=== PATIENT | female | born 1985 | race Caucasian/White ===

== ENCOUNTER 2017-04-14 12:02 | Emergency (ER) | payer OTHER, SELFPAY | END 2017-04-14 12:59 | disposition home or self-care (01) | PROVIDERS: Emergency Provider Emergency Medicine; Visit Provider Emergency Medicine | DX: J10.1 Influenza due to other identified influenza virus with other respiratory manifestations (principal); J06.9 Acute upper respiratory infection, unspecified; Z88.2 Allergy status to sulfonamides | CPT/HCPCS: 87070; 87275; 87276; 87430; 99282 ==

== ENCOUNTER → 2017-09-02 14:21 | Outpatient (CLI) | payer OTHER, SELFPAY ==
--- NOTE | 2017-09-02 16:16 | CT_ITS ---
CT abdomen pelvis wo con CLINICAL INDICATION: Left lower back and flank pain ITS.REASON: CT W/O Contrast- Stone Protocol ORDERING PHYSICIAN: Robert Cohn MD PATIENT AGE: 31 years COMPARISON: None TECHNIQUE: Axial images obtained with sagittal and coronal reformats. All CT scans at the facility use one or more dose reduction, viz: automated exposure control; ma/kV adjustment per patient size (including targeted exams where dose is matched to indication; i.e. head); or iterative reconstruction technique. PROCEDURE: Oral Contrast: None IV Contrast: None . FINDINGS: Lung bases are clear. There is an ill-defined 16 mm isodensity in the right hepatic lobe posteriorly and superiorly. A 9 mm isodense involves the tip of the right hepatic lobe inferiorly and there is an additional isodensity in the right hepatic lobe inferiorly and posteriorly at 11 mm. The spleen, adrenal glands, pancreas, and kidneys have an unremarkable unenhanced CT appearance. No obstructing renal or ureteral calculi. No evidence of appendicitis. No intestinal obstruction or free air. No focal inflammatory change apparent. No acute bony anomalies. IMPRESSION: 1. No obstructing renal or ureteral calculi. 2. At least 3 isodensity's of the liver the largest in the hepatic dome and 16 mm. These cannot be further characterized by CT. Initially ultrasound may be of further value to determine the cystic or solid nature.
== END ==
PROVIDERS: Family Provider Family Medicine; PCP Pediatrics; Visit Provider Nurse Practitioner Obstetrics & Gynecology
DX: N20.0 Calculus of kidney (principal)
CPT/HCPCS: 74176

== ENCOUNTER → 2019-12-09 14:39 | Outpatient (CLI) | payer OTHER, SELFPAY ==
[2019-12-09 15:10] LABS: Basophils % 0.2 % (0.1-2.0); Eosinophils # 0.1 K/mm3 (0.0-0.4); Hemoglobin 12.7 g/dL (12.2-16.2); Lymphocytes # 2.5 K/mm3 (0.7-4.5); Lymphocytes % 19.1 % (10-50); Mean Corpuscular HGB Conc 36.4 g/dL (31.8-35.4); Mean Corpuscular Hemoglobin 33.6 pg (27.0-31.2); Mean Corpuscular Volume 92.3 fl (81-99); Mean Platelet Volume 8.5 fl (7.4-10.4); Monocytes # 0.4 K/mm3 (0.1-1.0); Monocytes % 3.3 % (1.7-9.3); Neutrophils # 9.9 K/mm3 (1.8-7.8); Neutrophils % 76.4 % (37.0-80.0); Platelet Count 232 K/mm3 (142-424); Red Blood Count 3.79 M/mm3 (4.20-5.40)
[2019-12-11 08:14] LABS: HIV Screen 4th Generation wRfx Non Reactive (Non Reactive)
[2019-12-11 10:16] LABS: Hepatitis B Surface Antigen Negative (Negative); Hepatitis C Antibody <0.1 s/co ratio (0.0-0.9); Rubella Antibodies, IgG 1.46 index (Immune >0.99)
[2019-12-12 15:09] LABS: Rapid Plasma Reagin Ab Titer Non Reactive (NonRea<1:1)
== END ==
PROVIDERS: Visit Provider Nurse Practitioner Obstetrics & Gynecology
DX: Z34.90 Encounter for supervision of normal pregnancy, unspecified, unspecified trimester (principal)
CPT/HCPCS: 36415; 85025; 86592; 86703; 86762; 86850; 87340; 87380; G0432

== ENCOUNTER → 2019-12-16 10:30 | Outpatient (CLI) | payer OTHER, SELFPAY ==
--- NOTE | 2019-12-16 10:30 | US_ITS ---
PROCEDURE: US OB TRANSVAGINAL CLINICAL INDICATION: for dates Early Ob ultrasound for dates COMPARISON: No exams were available for comparison FINDINGS: An intrauterine gestational sac is present with a pole with a crown-rump length of 1.13cm correlating to gestational age of 7weeks 2days. heart tones are present with an FHR of 146bpm. Yolk sac is noted. 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 There is minimal amount of cul-de-sac fluid noted. IMPRESSION: There is a live intrauterine gestation at 7 weeks 2 days. The intrauterine gestation is within the right side of a bicornuate uterus. Estimated due date by Ultrasound is 08/01/2020 Dictated by: Shailesh Weems MD 12/16/2019 14:05 Shailesh Weems MD in [place] 12/16/2019 14:05
== END ==
PROVIDERS: PCP Pediatrics; Visit Provider Nurse Practitioner Obstetrics & Gynecology
DX: Z34.90 Encounter for supervision of normal pregnancy, unspecified, unspecified trimester (principal)
CPT/HCPCS: 76817

== ENCOUNTER 2020-03-06 13:35 | Emergency (ER) | payer OTHER, SELFPAY ==
[2020-03-06 14:20] VITALS: BP 135/93; PULSE 95; RESP 20; TEMP 37; O2SAT 99; BMI 27.4
[2020-03-06 14:43] LABS: UTC Strep Screen (Rapid) Negative (Negative)
--- NOTE | 2020-03-06 14:53 | HMH.EDUTC ---
[facility] [place] Disposition Clinical Impression: Viral syndrome Disposition: Home, Self-Care Condition on Discharge: Good Instructions: DI for Viral Syndrome, Preventing the Spread of Coronavirus Discharge Instructions Additional Instructions: Drink plenty of fluids. Take tylenol for pain or fever. Follow up with your regular doctor. GO TO THE ER FOR ANY WORSENING SYMPTOMS Referrals: Elan Haley [Primary Care Provider] - Forms: Work/School Release Time of Disposition: 14:54 Medical Decision Making - Medical Records Medical records reviewed: No: I reviewed the patient's medical records. - Joseph Inquiry Pt receiving controlled substance: No Vital Signs: 03/06/20 14:20 03/06/20 14:58 Temperature 98.6 F 98.6 F Temperature Source Oral Pulse Rate 95 H Pulse Rate [Left Brachial] 95 H Respiratory Rate 20 20 Blood Pressure 135/93 H Blood Pressure [Left Arm] 135/93 H Blood Pressure Mean [Left Arm] 107 Blood Pressure Source [Left Arm] Automatic Cuff Blood Pressure Position [Left Arm] Sitting 02 Sat by Pulse Oximetry 99 Oxygen Delivery Method Room Air - Lab Data Lab results reviewed: Yes: I reviewed the patient's lab results. Lab Results 03/06/20 14:37: Strep Scn Rapid Clinic Negative Orders (Tests/Meds): ORDERS Category Date Time Status Strep Screen Confirmation Stat Micro 03/06/20 14:37 Received [facility] [place] HPI - General Stated complaint: headache,sore throat,cough, wants covid test Time Seen by Provider: 03/06/20 14:53 Mode of Arrival: Ambulatory Source of Information: Patient Limitations: No Limitations Description of Symptoms (Recalled from Triage Doc. by RN): PATIENT C/O COUGH, SORE THROAT, AND HEADACHE. REQUESTING A COVID TEST D/T HER CHILD BEING EXPOSED TO IT THROUGH DAYCARE ON 02/29/20 HEENT Symptoms (Recalled from RN notes): Yes Resp Symptoms (Recalled from RN notes): Yes Skin Symptoms (Recalled from RN notes): No MS Symptoms (Recalled from RN notes): No Functional Status (Recalled from RN notes): WNL - History of Present Illness Provider Complaint: She body aches, feeling bad, chilling (no documented fever) and sore throat for the past 1 day. - Related Data Allergies Allergy/AdvReac Type Severity Reaction Status Date / Time Sulfa (Sulfonamide Allergy Intermediate Verified 12/31/19 10:24 Antibiotics) [SULFA (SULFONAMIDE ANTIBIOTICS)] Latex, Natural Rubber AdvReac Mild Verified 12/31/19 10:24 - Worker's Comp Is this a Worker's Comp case?: No [facility] History - Hepatitis A Screen Drug use history?: No High risk sexual behaviors?: No History of sexually transmitted infection?: No Currently employed?: No Childcare worker?: No Do you have indoor plumbing?: Yes Do you have electricity?: Yes Attestation statement:: This patient has been screened for Hepatitis A risk factors. I have reviewed the patient's past medical history: Yes Medical History: Reports:: Anxiety Other Medical History: Reports: Anemia Other Surgeries: Yes: No Previous Surgery Amputation: No Fractures: No - Social History Smoking Status: Current every day smoker Tobacco Type: cigarettes (4-6 cigarettes per day) Alcohol Intake: never Alcohol Intake Frequency:: holidays/special occasions only Substance Use Type: denies use Occupational Status: other Housing: house Household Members: family Comment: -wine. -more nights than not. -a glass of wine. 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
[2020-03-06 14:58] VITALS: BP 135/93; PULSE 95; RESP 20; TEMP 37; O2SAT 99
== END 2020-03-06 15:00 | disposition home or self-care (01) ==
PROVIDERS: Emergency Provider Nurse Practitioner Family; PCP Pediatrics
DX: B34.9 Viral infection, unspecified (principal); F41.9 Anxiety disorder, unspecified; F17.210 Nicotine dependence, cigarettes, uncomplicated
CPT/HCPCS: 87880; 99202; U0003

== ENCOUNTER → 2020-06-16 09:57 | Outpatient (CLI) | payer OTHER, SELFPAY ==
--- NOTE | 2020-06-16 09:57 | US_ITS ---
PROCEDURE: US OB TRANSVAGINAL CLINICAL INDICATION: US OB TV for Confirmation of -DATES COMPARISON: CT ABDPELWO CT abdomen pelvis wo con from 09/02/2017 US US OB TRANSVAGINAL from 12/16/2019 FINDINGS: An intrauterine gestational sac is present with a pole with a crown-rump length of 1.99cm correlating to gestational age of 8weeks 4days. heart tones are present with an FHR of 160bpm. Yolk sac is noted. The uterus is retroverted and bicornuate with the gestational in the right-side of the uterus. IMPRESSION: Live IUP at 8 weeks 4 days Estimated due date by Ultrasound is 01/22/2021 Dictated by: Shailesh Weems MD 06/16/2020 17:51 Shailesh Weems MD in [place] 06/16/2020 17:51
== END ==
PROVIDERS: PCP Pediatrics; Visit Provider Nurse Practitioner Obstetrics & Gynecology
DX: O26.841 Uterine size-date discrepancy, first trimester (principal)
CPT/HCPCS: 76817

== ENCOUNTER → 2020-07-06 08:10 | Outpatient (CLI) | payer OTHER, SELFPAY ==
[2020-07-06 09:01] LABS: Basophils % 0.2 % (0.1-2.0); Eosinophils # 0.1 K/mm3 (0.0-0.4); Eosinophils % 1.7 % (0.1-12.0); Hematocrit 34.6 % (37.0-47.0); Hemoglobin 11.7 g/dL (12.2-16.2); Lymphocytes # 1.8 K/mm3 (0.7-4.5); Lymphocytes % 23.4 % (10-50); Mean Corpuscular HGB Conc 33.8 g/dL (31.8-35.4); Mean Corpuscular Hemoglobin 31.4 pg (27.0-31.2); Mean Corpuscular Volume 92.9 fl (81-99); Monocytes # 0.2 K/mm3 (0.1-1.0); Monocytes % 3.1 % (1.7-9.3); Neutrophils # 5.5 K/mm3 (1.8-7.8); Neutrophils % 71.7 % (37.0-80.0); Platelet Count 222 K/mm3 (142-424); Red Blood Count 3.73 M/mm3 (4.20-5.40); Red Cell Distribution Width 12.3 % (11.5-17.5); White Blood Count 7.6 K/mm3 (4.8-10.8)
[2020-07-07 11:57] LABS: HIV Screen 4th Generation wRfx Non Reactive (Non Reactive)
[2020-07-07 13:01] LABS: Hepatitis B Surface Antigen Negative (Negative); Hepatitis C Antibody <0.1 s/co ratio (0.0-0.9); Rapid Plasma Reagin Ab Titer Non Reactive (NonRea<1:1); Rubella Antibodies, IgG 1.29 index (Immune >0.99)
== END ==
PROVIDERS: Visit Provider Nurse Practitioner Obstetrics & Gynecology
DX: Z34.90 Encounter for supervision of normal pregnancy, unspecified, unspecified trimester (principal)
CPT/HCPCS: 36415; 85025; 86592; 86703; 86762; 86850; 87340; 87380; G0432

== ENCOUNTER → 2020-09-08 12:56 | Outpatient (CLI) | payer OTHER, SELFPAY ==
--- NOTE | 2020-09-08 12:56 | US_ITS ---
PROCEDURE: US OB /MATERNAL DETAIL CLINICAL INDICATION: 20 weeks gestation COMPARISON: US US OB TRANSVAGINAL from 06/16/2020 FINDINGS: Single viable intrauterine gestation. Breech position. Placenta: Posteriorplacenta grade 1. There is average amount fluid. The cervix appears satisfactory. Closed and measuring 4 cm in length. Complete survey performed and was unremarkable on the submitted images as in PACS. No discrete anomalies identified on survey imaging by technologist. Active fetus. Three-vessel cord with satisfactory umbilical cord insertion. 4- chamber heart noted. Survey of brain & ventricles Unremarkable. Face and neck survey unremarkable. Diaphragm and chest views unremarkable. Abdomen: Both kidneys noted and unremarkable. Stomach noted and satisfactory. Spine: Survey of the spine satisfactory with no anomalies identified nor imaged. Both arms and legs noted. Amniotic Fluid: Adequate. Maternal adnexa: No significant findings. Measurements: Average ultrasound age 20 weeks 4 days. Gestational Age 20 weeks 4 days Estimated due date by ultrasound age 1001/22/2021. Estimated weight 351 g BPD = 21 weeks 0 days OFD = 20 weeks 6 days HC = 20 weeks 1 day AC = 20 weeks 4 days FL = 20 weeks 2 days Growth Percentile= 35% Heart Rate = 142 BPM Cerebellum = 20 weeks 4 days Humerus = 20 weeks 0 days HC/AC is 1.15 CI is 80 percent FL/BPD is 67 percent FL/AC is 22 percent IMPRESSION: Live IUP in breech presentation with an average ultrasound age of 20 weeks and 4 days. No obvious anomalies. Please see above for detail. Dictated by: Shailesh Weems MD 09/09/2020 07:19 Shailesh Weems MD in [place] 09/09/2020 07:19
== END ==
PROVIDERS: PCP Pediatrics; Visit Provider Nurse Practitioner Obstetrics & Gynecology
DX: Z34.90 Encounter for supervision of normal pregnancy, unspecified, unspecified trimester (principal); Z3A.20 20 weeks gestation of pregnancy
CPT/HCPCS: 76811

== ENCOUNTER → 2020-10-18 15:29 | Outpatient (CLI) | payer OTHER, SELFPAY ==
--- NOTE | 2020-10-18 15:34 | US_ITS ---
PROCEDURE: US OB FOLLOW UP CLINICAL INDICATION: decreased movement FINDINGS: The following parameters are obtained: Single live fetus is present in breech presentation. heart and body motion noted. Cervix is closed measuring 4 cm. Placenta is posterior and grade 1 without previa or abruption Average ultrasound age is Average 26weeks 2days Estimated due date by ultrasound is 01/22/2021. Estimated weight is 914g. This 38th percentile. BPD: 26weeks 2days OFD: 26 weeks 0 days HC: 25weeks 5days AC: 26weeks 3days FL: 26weeks 3days heart rate: 155bpm bpm. HC/AC: 1.07 Cephalic index: 0.77 FL/BPD: 0.75 FL/AC: 0.22 IMPRESSION: There is a single live fetus present in breech presentation. Average ultrasound age 26 weeks 2 days please see above for detail. heart and body motion noted Dictated by: Shailesh Weems MD 10/18/2020 16:36 Shailesh Weems MD in [place] 10/18/2020 16:36
== END ==
PROVIDERS: PCP Pediatrics; Visit Provider Nurse Practitioner Obstetrics & Gynecology
DX: O36.8190 Decreased fetal movements, unspecified trimester, not applicable or unspecified (principal)
CPT/HCPCS: 76816

== ENCOUNTER → 2020-10-25 07:22 | Outpatient (CLI) | payer OTHER, SELFPAY ==
[2020-10-25 08:17] LABS: Glucose,Fasting 77 mg/dl (74-100)
[2020-10-25 10:23] LABS: Glucose 1 Hour 87 mg/dL (74-100)
== END ==
PROVIDERS: Visit Provider Nurse Practitioner Obstetrics & Gynecology
DX: Z34.90 Encounter for supervision of normal pregnancy, unspecified, unspecified trimester (principal)
CPT/HCPCS: 36415; 82951

== ENCOUNTER → 2020-12-22 13:56 | Outpatient (CLI) | payer OTHER, SELFPAY ==
--- NOTE | 2020-12-22 13:56 | US_ITS ---
PROCEDURE: US OB BIOPHYSICAL PROFILE CLINICAL INDICATION: she measures up slightly smaller than her dates. Small for gestational TECHNIQUE: FINDINGS: There is a single live fetus in breech position. Placenta is lateral and posterior grade 2. Average ultrasound age is 34 weeks 4 days. BPD 34/1, OFD 35/1, HC 34/2, AC 34/5, FL 34/6. Estimated weight is 2462 g which is 23rd percentile. SANG is 10 cm. Biophysical profile is 8 of 8. heart tones are present 142 BPM. Cervix is closed measuring 4 cm. IMPRESSION: There is a single live fetus in breech position. Placenta is lateral and posterior grade 2. Average ultrasound age is 34 weeks 4 days. BPD 34/1, OFD 35/1, HC 34/2, AC 34/5, FL 34/6. Estimated weight is 2462 g which is 23rd percentile and does not meet the criteria for intrauterine growth restriction.. SANG is 10 cm. Biophysical profile is 8 of 8. Dictated by: Shailesh Weems MD 12/24/2020 12:00 Shailesh Weems MD in [place] 12/24/2020 12:00
== END ==
PROVIDERS: PCP Pediatrics; Visit Provider Nurse Practitioner Obstetrics & Gynecology
DX: O36.5990 Maternal care for other known or suspected poor fetal growth, unspecified trimester, not applicable or unspecified (principal)
CPT/HCPCS: 76816; 76819

== ENCOUNTER → 2020-12-27 17:48 | Outpatient (CLI) | payer OTHER, SELFPAY | PROVIDERS: Visit Provider Nurse Practitioner Obstetrics & Gynecology | DX: Z34.90 Encounter for supervision of normal pregnancy, unspecified, unspecified trimester (principal); Z3A.36 36 weeks gestation of pregnancy | CPT/HCPCS: 86403 ==

== ENCOUNTER 2021-01-10 20:21 | Inpatient (IN) | payer OTHER, SELFPAY ==
[2021-01-10] VITALS (7 sets, daily range): BP systolic 105–123; BP diastolic 60–90; PULSE 65–90; RESP 18; TEMP 35.9–36.7; O2SAT 97–100; BMI 28.8
[2021-01-10 20:26] LABS: Coronavirus 19, PCR Not Detected (NotDetected); Influenza A, PCR Not Detected (NotDetected); Influenza B, PCR Not Detected (NotDetected)
--- NOTE | 2021-01-10 20:34 | HMH.OBAPHP ---
OB - H&P: HPI Antepartum - History of Present Illness Chief complaint: Breech presentation, ruptured membranes History of present illness: She is a 35-year-old 3 para 1 aborta 1 who is 32 weeks gestation age. She ruptured membranes at home. She is known to have a breech presentation and as result of that is offered primary lower segment transverse section. We had plan to deliver her a week from now. - History of Present Criteria for establishing EDC:: LMP confirmed by 1st trimester US care: good care Ultrasounds: normal 1st trimester US, normal mid trimester US Obstetrical complications: malpresentation - Labs Blood type: A (+) positive Rubella: immune RPR/VDRL: nonreactive GBS status: negative HBsAG: negative [facility] History I have reviewed the patient's past medical history: Yes Medical History: Reports:: Anxiety *Have you ever received a pneumonia vaccine?: No *Have you received a flu vaccine this season?: Yes Other Medical History: Reports: Anemia Other Surgeries: Yes: No Previous Surgery Amputation: No Fractures: No - *Social History Smoking Status: Former smoker Tobacco Type: cigarettes Alcohol Intake: current Alcohol Intake Frequency:: holidays/special occasions only Substance Use Type: denies use *Occupational Status:: other Housing: house Household Members: family *Travel in the last 8 weeks: None - Psychiatric History Pschychiatric History:: Reports:: Anxiety Family Hx:: Cancer, Diabetes, Heart Attack, Hypertension, Stroke, Thyroid Disorder 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 Review of Systems - Review of Systems Review of systems:: pertinent systems reviewed and negative unless documented below Meds Home Medications Medication Instructions Recorded Confirmed Type prenat.vits,jodie,hhe-rgue-xxhox 1 tab PO DAILY 06/09/20 01/03/21 History ferrous sulfate 325 mg (65 mg 325 mg PO DAILY #30 tab 08/30/20 01/03/21 Rx iron) tablet Allergies Allergy/AdvReac Type Severity Reaction Status Date / Time Sulfa (Sulfonamide Allergy Intermediate Verified 01/03/21 09:48 Antibiotics) [SULFA (SULFONAMIDE ANTIBIOTICS)] Latex, Natural Rubber AdvReac Mild Verified 01/03/21 09:48 OB - H&P: Exam - Constitutional no acute distress - Routine HEENT Exam Head: Present: normocephalic Eye: Present: EOMI, PERRL ENT: Present: mucous membranes moist - Routine Neck Exam Present: supple, full ROM - Routine Respiratory Exam Absent: accessory muscle use (good air entry bilaterally), respiratory distress, wheezes, crackles - Routine Cardiovascular Exam Present: RRR. Absent: murmur - Routine Abdominal Exam Present: soft, normoactive bowel sounds. Absent: tenderness, distended, guarding - Routine Rectal Exam Patient deferred: visual exam, digital exam - Routine Exam Patient deferred: external exam, groin exam, perineal exam - Routine Extremities Exam Present: full ROM. Absent: cyanosis, edema - Routine Skin Exam Present: intact. Absent: cyanosis - Routine Neurological Exam Present: alert, oriented X3 - Routine Psychiatric Exam Present: normal affect OB - A/P Antepartum (1) Breech presentation at Status: Acute (2) delivery delivered Status: Acute - Additional Plan Planning to breastfeed?: Yes Plan: other Additional Information:: She has confirmed spontaneous rupture of membranes and is known to be in the breech presentation. As result of that we will go ahead with a primary lower segment transverse section.
[2021-01-10 20:35] LABS: Basophils % 0.4 % (0.1-2.0); Eosinophils # 0.1 K/mm3 (0.0-0.4); Eosinophils % 0.5 % (0.1-12.0); Hematocrit 33.7 % (37.0-47.0); Hemoglobin 11.6 g/dL (12.2-16.2); Lymphocytes # 2.9 K/mm3 (0.7-4.5); Mean Corpuscular HGB Conc 34.2 g/dL (31.8-35.4); Mean Corpuscular Hemoglobin 31.3 pg (27.0-31.2); Mean Corpuscular Volume 91.5 fl (81-99); Mean Platelet Volume 9.8 fl (7.4-10.4); Monocytes # 0.4 K/mm3 (0.1-1.0); Monocytes % 4.5 % (1.7-9.3); Neutrophils # 5.6 K/mm3 (1.8-7.8); Neutrophils % 62.6 % (37.0-80.0); Platelet Count 249 K/mm3 (142-424); Red Blood Count 3.69 M/mm3 (4.20-5.40); Red Cell Distribution Width 13.4 % (11.5-17.5); White Blood Count 8.9 K/mm3 (4.8-10.8)
[2021-01-10 20:43] LABS: Blood Urea Nitrogen 12 mg/dl (7-17); Carbon Dioxide 19 mmol/L (22.0-30.0); Chloride 106 mmol/L (98-107); Creatinine Clearance Estimated 161 mL/min (50-200); Estimated Glomerular Filt Rate 113 ml/min (>60); GFR (African American) 137 ML/MIN (>60); Glucose 77 mg/dl (74-100); Potassium 3.7 mmoL/L (3.5-5.1)
[2021-01-10 20:49] LABS: Anion Gap 14.7 mEq/L (5-15); Sodium 136 mmol/L (136-145)
[2021-01-10 21:00] LABS: Microscopic, Urine URINE MICROSCOPIC (MICROSCOPIC)
[2021-01-10 21:04] LABS: Appearance,Urine CLEAR (Clear); Bilirubin,Urine Negative (Negative); Blood, Urine Negative (Negative); Color,Urine YELLOW (Yellow); Glucose,Urine (UA) Negative (Negative); Ketones,Urine Negative (Negative); Leukocyte Esterase,Urine Negative (Negative); Nitrate,Urine Negative (Negative); PH,Urine 6.5 (5.0-8.5); Protein,Urine Negative (Negative); Urobilinogen,Urine 0.2 EU/dl (0.2)
[2021-01-10 21:15] LABS: Amphetamine/Metha Screen,Urine Negative ng/ml (<1000)
[2021-01-10 21:16] LABS: Barbiturates Screen,Urine Negative ng/ml (<200)
[2021-01-10 21:17] LABS: Benzodiazepines Screen,Urine Negative ng/ml (<200); Cannabinoid Screen,Urine Negative ng/ml (<50)
[2021-01-10 21:18] LABS: Cocaine Screen,Urine Negative ng/ml (<300)
[2021-01-10 21:19] LABS: Methadone Screen,Urine Negative ng/ml (<300); Opiate Screen,Urine Negative ng/ml (<300)
[2021-01-10 21:20] LABS: Phencyclidine Screen,Urine Negative ng/ml (<25)
--- NOTE | 2021-01-10 21:53 | HMH.OPNOTE ---
Date of procedure: 01/10/21 Pre-op Diagnosis:: Breech presentation, spontaneous rupture of membranes Post-op Diagnosis:: Breech presentation, spontaneous rupture of membranes, uterine atony Procedure performed:: Primary lower segment transverse section and B. Fox suture Surgeon:: Robert Cohn MD Hog Room Supervisor(s):: Dr. Zhong AUTOMAT WATCHER:: Other (Manan Morfin) Anesthesia: spinal Estimated blood loss (mL): 600 Clinical Note:: She is a 35-year-old 3 para 1 aborta 1 who was 38 and 2 weeks gestational age. She ruptured her membranes at home and came into labor and delivery. She is known to be a breech presentation and was scheduled for a section 1 week from now. As result of the ruptured membranes and breech presentation she was taken for a primary lower segment transverse section. The risks and benefits of surgery were discussed with the patient last week when she signed her consents for the original surgery. Operative findings:: She delivered a liveborn female child at 9:14 PM in the evening of January 10, 2021. The baby was in the sierra breech presentation. Ovaries and tubes appeared normal. She did have placentation at the right side of the fundus of the uterus and this area was quite boggy after the uterus was removed. I elected to place a B. Fox suture as result of this. Operative note:: She was taken to the operating room where spinal anesthesia was found be adequate. She was prepped and draped in normal sterile fashion in the supine position with a leftward tilt. A Dai catheter was in the bladder. A Pfannenstiel skin incision was made with knife then carried through to the underlying layer of fascia with cautery. The fascia was opened in the midline with cautery and extended laterally using Martin scissors. Jennie clamps were applied to the superior aspect of the fascial incision which was tented up and the underlying rectus muscles dissected off using cautery. The Jennie clamps were then applied to the inferior aspect of the fascial incision which in a similar fashion was tented up and the underlying rectus muscles dissected off using cautery. The rectus muscles were then in the midline, the peritoneum identified, and entered sharply with Metzenbaum scissors. This incision was then extended superiorly and inferiorly with cautery. We had good visualization of the bladder inferiorly. The bladder peritoneum was then opened in the midline and extended laterally using Metzenbaum scissors. A bladder flap was created digitally. Transverse incision was made through the uterine muscle to the amnion. This incision was then extended laterally using fingers traction. The amnion was entered sharply with knife. The infant's breech was then delivered atraumatically. This was followed by the after coming shoulders and head. The oropharynx and nasopharynx were bulb suctioned. The baby was vigorous so we allowed the cord to continue to pulsate for approximately 1 minute. Cord was then doubly clamped and cut. The was then handed off to Dr. Holguin who assigned Apgars of 8 at 1 minute and 9 at 5 minutes. We then obtained cord blood. Using gentle traction on the cord and countertraction on the fundus I was able to easily deliver the placenta intact. It had a normal three-vessel cord. The uterus was then cleared of clots and debris . The uterus was exteriorized from the abdominal cavity. The uterine incision was then closed using running 0 Vicryl suture in a locked fashion. A second layer of the same suture was used to imbricate the first layer. The bladder peritoneum was then closed using running 2-0 Vicryl suture in a locked fashion. The gutters and cul-de-sac were then cleared of clots and debris . Once again hemostasis was assured. At the fundus of the uterus on the right side there was a boggy area where the placenta was attached. I elected to place a B. Fox suture. Using #1 Vicryl suture with a pr
--- NOTE | 2021-01-10 22:00 | P.PN_ITS ---
[facility] Anesthesia Checklist - Patient Identification Patient Identification: Arm Band, Verbal (Name & ) - Structural Data Admitted From: Inpatient Planned Operative Procedure/s: c section Consent for Planned Operative Procedure(s) Verified: Yes Verified Documents: History and Physical - NPO Status Verified Time NPO: 00:00 - Additional verifications Patient : Yes Anesthesia Reactions: No Hx Blood Transfusions: No Blood Transfusion Reaction: No Cephalosporin Allergy: No Previous Colonoscopy: No - Cardiovascular Assessment Heart Sounds: S1 & S2 Pulse Strength: Baseline Pulse Rhythm: Regular Peripheral Edema: No - Airway Assessment C-Spine Mobility Assessed: Yes TMJ Mobility Assessed: Yes Dentition: Good Dentition - Neurological Assessment Level of Consciousness: Awake, Alert, Appropriate Hx Seizures: No Numbness or tingling in extremities: No - Anesthesia Plan Anesthesia Risk discussed: Yes Anesthesia Plan: Verified ASA Class: II Anesthesia Type: Spinal [facility] History I have reviewed the patient's past medical history: Yes Medical History: Reports:: Anxiety *Have you ever received a pneumonia vaccine?: No *Have you received a flu vaccine this season?: Yes Other Medical History: Reports: Anemia Anesthesia experience/problems:: none Other Surgeries: Yes: No Previous Surgery Amputation: No Fractures: No - *Social History Smoking Status: Former smoker Tobacco Type: cigarettes Alcohol Intake: current Alcohol Intake Frequency:: holidays/special occasions only Substance Use Type: denies use *Occupational Status:: other Housing: house Household Members: family *Travel in the last 8 weeks: None - Psychiatric History Pschychiatric History:: Reports:: Anxiety Family Hx:: Cancer, Diabetes, Heart Attack, Hypertension, Stroke, Thyroid Disorder 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
--- NOTE | 2021-01-10 22:02 | P.PN_ITS ---
[facility] Anesthesia Record Part I Intake, IV Amount: 1,900 Estimated blood loss (mL): 600 Urine output (mL): 0 Blood Products used (#): none Blood Pressure: 121/90 SaO2: 100 Pulse Rate: 84 Respiratory Rate: 18 Temperature: 97.3 F Patient is:: Awake, Stable Stable to PACU at:: 21:55
--- NOTE | 2021-01-10 22:41 | HMH.PHAVTE ---
[facility] Pharmacy VTE Monitoring - Patient Demographics Admission date: 01/10/21 Report Date: 01/10/21 Time: 22:41 Allergies/Adverse Reactions: Patient Allergies Sulfa (Sulfonamide Antibiotics) [SULFA (SULFONAMIDE ANTIBIOTICS)] Allergy (Intermediate, Verified 01/03/21 09:48) Latex, Natural Rubber Adverse Reaction (Mild, Verified 01/03/21 09:48) Height: 1.65 m Weight: 78.471 kg Patient Problems: Current Active Problems Breech presentation at (Acute) delivery delivered (Acute) - VTE Risk Labs: VTE Related Lab Results Hgb 11.6 g/dL (12.2-16.2) L 01/10/21 20:15 Hct 33.7 % (37.0-47.0) L 01/10/21 20:15 Plt Count 249 K/mm3 (142-424) 01/10/21 20:15 BUN 12 mg/dl (7-17) 01/10/21 20:15 Creatinine 0.60 mg/dl (0.52-1.04) 01/10/21 20:15 Estimated Creat Clear 161 mL/min (50-200) 01/10/21 20:15 Clinical Trial Participant: No - Prophylaxis VTE Prophylaxis Ordered?: Yes Types of VTE Prophylaxis: IPCS Knee High (POST OP) Location of Applied Device: Bilateral Lower Extremeties
--- NOTE | 2021-01-10 22:41 | PC.NURSE ---
2223-detailed report called to ASHOK Little 2225-pt transported to ob room 278 via hospital bed w/rossi rails up and left in care of ASHOK Little w/bed locked in lowest position, vss, pt stable
[2021-01-10 22:49] LABS: Microscopic,Cath URINE MICROSCOPIC (MICROSCOPIC)
[2021-01-10 22:50] LABS: Appearance,Urine/Cath CLEAR (Clear); Bilirubin,Cath Negative (Negative); Blood, Urine/Cath Negative (Negative); Color,Urine/Cath YELLOW (Yellow); Glucose,Urine/Cath (UA) Negative (Negative); Ketones,Urine/Cath Negative (Negative); Leukocyte Esterase,Cath Negative (Negative); Nitrate,Cath Negative (Negative); PH,Urine/Cath 6.5 (5.0-8.5); Protein,Urine/Cath Negative (Negative); Specific Gravity, Urine/Cath <= 1.005 (1.005-1.030); Urobilinogen,Cath 0.2 EU/dl (0.2)
[2021-01-10 23:12] LABS: Bacteria,Urine/Cath TRACE /lpf
[2021-01-11 04:22] VITALS: BP 111/67; PULSE 68; RESP 18; TEMP 36.8; O2SAT 99
--- NOTE | 2021-01-11 06:42 | HMH.ANESII ---
[facility] Anesthesia Record Part II Discharge Time: 22:25 Destination: Obstetric Gynecology Dept PACU nurse assessment reviewed?: Yes Patient Condition:: Good Anesthesia Complications:: None Swallowing reflex intact?: Yes Cyanosis?: No Blood Pressure: 123/60 Pulse Rate: 70 Temperature: 96.6 F Mental Status: Alert & Oriented Pain level:: 0 Nausea and/or vomitting:: None Intake, IV Amount: 50
[2021-01-11 06:43] VITALS: BP 123/60; PULSE 70; TEMP 35.9
[2021-01-11 07:41] LABS: Hematocrit 33.4 % (37.0-47.0); Hemoglobin 10.8 g/dL (12.2-16.2)
[2021-01-11 08:00] VITALS: BP 104/65; PULSE 75; RESP 20; TEMP 36.9; O2SAT 100
[2021-01-11 16:00] VITALS: BP 105/68; PULSE 83; RESP 20; TEMP 36.7; O2SAT 100
[2021-01-11 20:17] VITALS: BP 104/67; PULSE 85; RESP 17; TEMP 36.9; O2SAT 97
[2021-01-12 04:22] VITALS: BP 103/59; PULSE 70; RESP 16; TEMP 36.9; O2SAT 98
[2021-01-12 08:00] VITALS: BP 106/66; PULSE 76; RESP 20; TEMP 36.7; O2SAT 100
--- NOTE | 2021-01-12 09:39 | HMH.OBDCSM ---
General - General Admission date:: 01/10/21 Discharge date: 01/12/21 HPI - History of Present Illness History of present illness: She is a 35-year-old 3 para 1 aborta 1 who is 38 and 2 weeks gestational age. She was noted to be in the breech presentation and came in with ruptured membranes. As result that she was offered primary lower segment transverse section. Hospital Course Hospital Course: On January 10, 2021 she underwent a primary lower segment transverse section. She delivered a liveborn female child at 9:14 PM in the evening of January 10, 2021. The baby was in the breech presentation. She weighed 7 pounds 4 ounces and had Apgars of 9 at 1 minute and 9 at 5 minutes. She has done well and has remained afebrile throughout her hospitalization. She is eating and drinking and ambulating. She had a T AP block and has done well with this. She had a B-Fox suture for uterine atony. The placenta was embedded in the fundus of the uterus on the left side and there was some bulging in this area. We elected to place this B. Fox suture as result of that. She has a positive blood, she is well immune and was group B streptococcus negative. Her stationary engineer apprentice is Dr. Marin. She is discharged home to follow-up with me in approximately 2 weeks time. She will continue with her vitamins and iron. She was given a prescription for Percocet 5/325 number 12 tablets. She was given the usual instructions with respect to limiting her activity, driving and sexual activity. She was given instructions with respect to wound care. Her condition on discharge is stable and improved. Rhogam Administration: Not Indicated Objective Vital signs: Temp Pulse Resp BP Pulse Ox 98.1 F 76 20 106/66 L 100 01/12/21 08:00 01/12/21 08:00 01/12/21 08:00 01/12/21 08:00 01/12/21 08:00 no acute distress - *Routine HEENT Exam Head: Present: normocephalic Eye: Present: EOMI, PERRL ENT: Present: mucous membranes moist DS: Diagnosis - Discharge Diagnosis (1) Breech presentation at Status: Acute (2) delivery delivered Status: Acute Discharge Plan - Patient Discharge Instructions ACTIVITY: No heavy lifting DIET: continue same diet Additional Instructions: No heavy lifting No driving Drink plenty of water Nothing in the vagina and no tub baths for 6 weeks Patient Instructions: Depression, Hemorrhage, DI for , DI for Pre-eclampsia, [facility] Post Discharge Instructions, Preventing the Spread of Coronavirus Discharge Instructions - Follow up Plan Follow up with: Snehal Tracy MD [Staff Physician] - Robert Cohn MD [Primary Care Provider] - Disposition: Home, Self-Care Condition at discharge:: Stable Home Medications: Home Medications Medication Instructions Recorded Confirmed Type prenat.vits,jodie,jfs-avfm-ejwsx 1 tab PO DAILY 06/09/20 01/10/21 History Ferrous Sulfate 325 mg PO DAILY 01/10/21 01/10/21 History Oxycodone HCl/Acetaminophen 1 tab PO Q4-6H PRN #12 tablet 01/12/21 Rx [Percocet 5/325mg tablet] Prescriptions/Medication Reconciliation: New Oxycodone HCl/Acetaminophen [Percocet 5/325mg tablet] 1 tab PO Q4-6H PRN #12 tablet PRN Reason: Severe Pain Continued prenat.vits,jodie,jar-pizk-dmbzt 1 tab PO DAILY Ferrous Sulfate 325 mg PO DAILY - Problem Reconciliation Problems Reviewed?: Yes
== END 2021-01-12 11:08 | disposition home or self-care (01) | DRG 788 ==
LOC: OBOUT 20:22 → OB 20:22
PROVIDERS: Admitting Provider Nurse Practitioner Obstetrics & Gynecology; PCP Nurse Practitioner Obstetrics & Gynecology; Visit Provider Nurse Practitioner Obstetrics & Gynecology
PROC: (CPT 59514; principal; 2021-01-10 20:45)
DX: O32.1XX0 Maternal care for breech presentation, not applicable or unspecified (principal); Z3A.38 38 weeks gestation of pregnancy; Z37.0 Single live birth; O75.89 Other specified complications of labor and delivery
CPT/HCPCS: 59514; 36415; 59025; 80048; 80305; 81001; 85014; 85018; 85025; 86850; 94761; C9290; C9803; G0283; J2405; U0003; U0005

== ENCOUNTER → 2021-05-11 13:16 | Outpatient (CLI) | payer OTHER, SELFPAY | PROVIDERS: Visit Provider Nurse Practitioner | DX: U07.1 COVID-19 (principal) | CPT/HCPCS: C9803; U0003; U0005 ==

== ENCOUNTER 2021-07-24 09:55 | Emergency (ER) | payer OTHER, SELFPAY ==
[2021-07-24 10:10] VITALS: BP 132/84; PULSE 95; RESP 18; TEMP 36.9; O2SAT 97; BMI 26.6
[2021-07-24 10:32] LABS: UTC Influenza A Antigen Negative (Negative)
[2021-07-24 10:33] LABS: UTC Influenza B Antigen Negative (Negative)
--- NOTE | 2021-07-24 10:34 | HMH.EDUTC ---
[facility] [place] Clinical Impression: Viral syndrome, Viral pharyngitis Disposition: Home, Self-Care Condition on Discharge: Good Instructions: DI for Viral Syndrome Additional Instructions: Drink plenty of fluids. Take tylenol or ibuprofen for pain or fever. Take the medications as directed. Follow up with your regular doctor. GO TO THE ER FOR ANY WORSENING SYMPTOMS Prescriptions: Brompheniramine/Pseudoephed/Dm [Bromfed Dm Cough Syrup] 5 ml PO Q6HP PRN #240 ml PRN Reason: Cough Transmission Status: Received by [facility] Referrals: Elan Haley [Primary Care Provider] - Forms: Work/School Release Time of Disposition: 11:21 Medical Decision Making - Medical Records Medical records reviewed: No: I reviewed the patient's medical records. - Joseph Inquiry Pt receiving controlled substance: No Vital Signs: 07/24/21 10:10 07/24/21 11:26 Temperature 98.5 F 98.5 F Temperature Source Oral Pulse Rate 95 H Pulse Rate [Left] 95 H Respiratory Rate 18 18 Blood Pressure 132/84 Blood Pressure [Right Arm] 132/84 Blood Pressure Mean [Right Arm] 100 02 Sat by Pulse Oximetry 97 - Lab Data Lab results reviewed: Yes: I reviewed the patient's lab results. Lab Results 07/24/21 10:20: Group A Strep Rapid Negative 07/24/21 10:20: Influenza Type A Ag Negative, Influenza Type B Ag Negative 07/24/21 11:26: Chlamy pneumoniae PCR Not detected, Adenovirus (PCR) Not detected, B. pertussis DNA (PCR) Not detected, Coronavirus OC43 (PCR) Not detected, Coronavirus HKU1 (PCR) Not detected, Coronavirus 229E (PCR) Not detected, SARS-CoV-2 (PCR) Not detected, Coronavirus NL63 (PCR) Not detected, Human Metapneumovir PCR Not detected, Influenza A (H1) PCR Not detected, Influ A (H1N1/09) PCR Not detected, Influenza A (H3) PCR Not detected, Influenza Type A (PCR) Not detected, Influenza Type B (PCR) Not detected, M. pneumoniae (PCR) Not detected, Parainfluenza 1 (PCR) Not detected, Parainfluenza 2 (PCR) Not detected, Parainfluenza 3 (PCR) Not detected, Parainfluenza 4 (PCR) Not detected, RSV (PCR) Not detected, Entero/Rhino (PCR) Detected A Orders (Tests/Meds): ORDERS Category Date Time Status Strep Screen Confirmation Stat Micro 07/24/21 10:20 [place] [facility] [place] - General Stated complaint: sore throat Time Seen by Provider: 07/24/21 10:35 Mode of Arrival: Ambulatory Source of Information: Patient Limitations: No Limitations Description of Symptoms (Recalled from Triage Doc. by RN): pt c/o a sore throat x2 days. HEENT Symptoms (Recalled from RN notes): Yes Resp Symptoms (Recalled from RN notes): No Skin Symptoms (Recalled from RN notes): No MS Symptoms (Recalled from RN notes): No Functional Status (Recalled from RN notes): wnl - History of Present Illness Provider Complaint: She states that she has felt bad for the past 2 days. She has had a sore throat, sinus congestion and a low grade fever. - Related Data Home Medications Medication Instructions Recorded Confirmed docosahexaenoic acid 200 mg capsule mg PO 02/02/21 03/01/21 multivitamin 1 tab PO DAILY 02/02/21 03/01/21 Previous Rx's Medication Instructions Recorded metoclopramide HCl 5 mg tablet 5 mg PO QID 14 Days #56 tab 03/01/21 drospirenone (contraceptive) 4 mg 4 mg PO DAILY 24 Days #28 tab 04/25/21 (28) tablet Brompheniramine/Pseudoephed/Dm 5 ml PO Q6HP PRN #240 ml 07/24/21 [Bromfed Dm Cough Syrup] Allergies Allergy/AdvReac Type Severity Reaction Status Date / Time Sulfa (Sulfonamide Allergy Intermediate Verified 03/01/21 11:09 Antibiotics) [SULFA (SULFONAMIDE ANTIBIOTICS)] Latex, Natural Rubber AdvReac Mild Verified 03/01/21 11:09 - Worker's Comp Is this a Worker's Comp case?: No [facility] History - Hepatitis A Screen Drug use history?: No High risk sexual behaviors?: No History of sexually transmitted infection?: No Currently employed?: No Childcare worker?: No Do you have
[2021-07-24 10:38] LABS: Strep Scrn Group A (Rapid) Negative (Negative)
[2021-07-24 11:26] VITALS: BP 132/84; PULSE 95; RESP 18; TEMP 36.9
[2021-07-24 11:35] LABS: Adenovirus,PCR Not Detected (NotDetected); Bordetella Pertussis Not Detected (NotDetected); Chlamydophila Pneumoniae, PCR Not Detected (NotDetected); Coronavirus 19, PCR Not Detected (NotDetected); Coronavirus 229E Not Detected (NotDetected); Coronavirus NL63 Not Detected (NotDetected); Coronavirus OC43 Not Detected (NotDetected); Coronovirus HKU1,PCR Not Detected (NotDetected); Human Metapneumovirus Not Detected (NotDetected); Influenza A, PCR Not Detected (NotDetected); Influenza AH1, 2009 Not Detected (NotDetected); Influenza AH1, PCR Not Detected (NotDetected); Influenza AH3,PCR Not Detected (NotDetected); Influenza B, PCR Not Detected (NotDetected); Mycoplasma Pneumoniae, PCR Not Detected (NotDetected); Parainfluenza 1, PCR Not Detected (NotDetected); Parainfluenza 2, PCR Not Detected (NotDetected); Parainfluenza 3, PCR Not Detected (NotDetected); Parainfluenza 4, PCR Not Detected (NotDetected); Respiratory Syncytial Virus Not Detected (NotDetected)
[2021-07-24 13:25] LABS: Rhinovirus/Enterovirus Detected (NotDetected)
== END 2021-07-24 11:40 | disposition home or self-care (01) ==
PROVIDERS: Emergency Provider Nurse Practitioner Family; PCP Pediatrics
DX: B34.8 Other viral infections of unspecified site (principal); J02.9 Acute pharyngitis, unspecified; Z88.2 Allergy status to sulfonamides
CPT/HCPCS: 87430; 87581; 87632; 87798; 87804; 99212; C9803; G0463; U0003; U0005

== ENCOUNTER → 2021-10-25 20:49 | Outpatient (CLI) | payer OTHER, SELFPAY ==
[2021-10-25 21:01] LABS: Influenza A, PCR Not Detected (NotDetected); Influenza B, PCR Not Detected (NotDetected)
[2021-10-25 21:26] LABS: Coronavirus 19, PCR Detected (NotDetected)
== END ==
PROVIDERS: PCP Pediatrics; Visit Provider Internal Medicine
DX: U07.1 COVID-19 (principal)
CPT/HCPCS: C9803; U0003; U0005

== ENCOUNTER 2022-03-29 10:06 | Emergency (ER) | payer OTHER, SELFPAY ==
[2022-03-29 10:39] VITALS: BP 132/78; PULSE 112; RESP 18; TEMP 37.5; O2SAT 100; BMI 28.3
[2022-03-29 10:42] LABS: UTC Strep Screen (Rapid) Positive (Negative)
[2022-03-29 10:53] LABS: Coronavirus 19, PCR Not Detected (NotDetected); Influenza A, PCR Not Detected (NotDetected); Influenza B, PCR Not Detected (NotDetected)
--- NOTE | 2022-03-29 10:54 | EXP.UTC ---
Discharge Plan Disposition Patient Disposition: Home, Self-Care Condition: Good Prescriptions Prescriptions: New amoxicillin [amoxicillin] 500 mg tablet 500 mg PO TID 10 Days Qty: 30 0RF methylprednisolone 4 mg Tablets,Dose Pack 4 mg PO DIRECTED Qty: 21 0RF jguybpwybhpxwgv-tzcarleoz-TO [Bromfed DM] 2-30-10 mg/5 mL Syrup 5 ml PO Q6H PRN (Reason: Cough) Qty: 240 0RF No Action multivitamin [One Daily Multivitamin] Tablet 1 tab PO DAILY Algal [place]-3 DHA 200 mg capsule PO metoclopramide HCl [Reglan] 5 mg tablet 5 mg PO QID 14 Days Qty: 56 0RF Rx Instructions: administer 30 minutes before meals Lo Loestrin Fe 1 mg-10 mcg (24)/10 mcg (2) tablet 1 tab PO DAILY Qty: 28 12RF uuksjletjkinfsr-iatcwjkgp-SX 118 ML syrup 5 ml PO Q6HP PRN (Reason: Cough) Qty: 240 0RF Referrals Follow up/Referrals: Katelyn Dhaliwal PA [Primary Care Provider] - See instructions Activity Restrictions/Add. Instructions Additional Instructions/Restrictions: Drink plenty of fluids. Take tylenol or ibuprofen for pain or fever. Take the medications as directed. Follow up with your regular doctor. GO TO THE ER FOR ANY WORSENING SYMPTOMS Throw your tooth brush away and get a new one. Quarantine until you know the results of your covid-19 test. Notify your school or workplace of your results and follow their instructions regarding return to work/school. Don't start the oral steroids until tomorrow, since you had the shot here today. The cough medication (promethazine dm) will make you drowsy, so don't drive or operate heavy machinery after taking it. The pyridium will make your urine turn orange, this is an expected side effect. It will stain your clothes if it comes into contact with them. We will culture the urine. That will tell what bacteria is causing your infection and which antibiotics will treat it best. Sometimes the first antibiotic we prescribe turns out to not work against different bacteria. So, make sure you follow up within 3 days if you are not getting better. Clinical Impressions Clinical Impression: Strep throat Stand Alone Forms Stand Alone Forms: Work/School Release Instructions Patient Instructions: Strep Throat, DI for Strep Throat Discharge ED Provider: Glynn Ansari [facility] [place] HPI General Stated complaint: fever,chills,aches,sore throat Mode of Arrival: Ambulatory Source of Information: Patient Limitations: No Limitations Time Seen by Provider: 03/29/22 10:53 Description of Symptoms (Recalled from Triage Doc. by RN): pt comes in with c/o bilateral ear pressure, sore throat, headache, fever, chills. body aches. symptoms began yesterday . pt has had flu exposure. HEENT Symptoms (Recalled from RN notes): Yes Resp Symptoms (Recalled from RN notes): Yes Skin Symptoms (Recalled from RN notes): No MS Symptoms (Recalled from RN notes): No Functional Status (Recalled from RN notes): n/a History of Present Illness Provider Complaint: She c/o sore throat, chills, body aches and malaise for the past 2 days. Related Data Home Medications Medication Instructions Recorded Confirmed docosahexaenoic acid 200 mg mg PO 02/02/21 03/01/21 capsule (Algal [place]-3 DHA) multivitamin (One Daily 1 tab PO DAILY 02/02/21 03/01/21 Multivitamin tablet) Previous Rx's Medication Instructions Recorded metoclopramide HCl 5 mg tablet 5 mg PO QID 14 days #56 tabs 03/01/21 (Reglan) cseytipkhdaztyx-zswoduidsvuhevy-YA 5 ml PO Q6HP PRN Cough #240 mL 07/24/21 2 mg-30 mg-10 mg/5 mL oral syrup norethindrone 1 mg-ethinyl 1 tab PO DAILY #28 tabs 10/15/21 estradiol 10 mcg (24)-iron 10 mcg(2) tablet (Lo Loestrin Fe) amoxicillin 500 mg tablet 500 mg PO TID 10 days #30 tabs 03/29/22 zmeraqovqdpryab-ftqenmqaugdagwp-EY 5 ml PO Q6H PRN Cough #240 mL 03/29/22 2 mg-30 mg-10 mg/5 mL oral syrup (Bromfed DM) methylprednisolone 4 mg tablets in 4 mg PO DIRECT
[2022-03-29 11:39] VITALS: BP 132/78; PULSE 112; RESP 18; TEMP 37.5
== END 2022-03-29 11:48 | disposition home or self-care (01) ==
PROVIDERS: Emergency Provider Nurse Practitioner Family; PCP Physician Assistant
DX: J02.0 Streptococcal pharyngitis (principal)
CPT/HCPCS: 87880; 99212; C9803; G0463; U0003; U0005

== ENCOUNTER → 2022-06-04 23:36 | Outpatient (CLI) | payer OTHER, SELFPAY ==
[2022-06-04 19:23] LABS: Basophils # 0.1 K/mm3 (0-0.2); Eosinophils # 0.1 K/mm3 (0.0-0.4); Eosinophils % 1.5 % (0.1-12.0); Hemoglobin 12.7 g/dL (12.2-16.2); Lymphocytes # 3.2 K/mm3 (0.7-4.5); Mean Corpuscular HGB Conc 33.3 g/dL (31.8-35.4); Mean Corpuscular Hemoglobin 31.5 pg (27.0-31.2); Mean Corpuscular Volume 94.7 fl (81-99); Mean Platelet Volume 8.9 fl (7.4-10.4); Monocytes # 0.3 K/mm3 (0.1-1.0); Monocytes % 3.7 % (1.7-9.3); Neutrophils # 3.5 K/mm3 (1.8-7.8); Neutrophils % 48.8 % (37.0-80.0); Platelet Count 299 K/mm3 (142-424); Red Blood Count 4.02 M/mm3 (4.20-5.40); Red Cell Distribution Width 12.7 % (11.5-17.5); White Blood Count 7.1 K/mm3 (4.8-10.8)
[2022-06-04 20:27] LABS: Alanine Aminotransferase 21 U/L (12-78); Albumin Level 4.6 g/dl (3.5-5.0); Albumin/Globulin Ratio 1.5 (1.1-1.8); Alkaline Phosphatase 53 U/L (38-126); Anion Gap 13.2 mEq/L (5-15); Aspartate Amino Transferase 32 U/L (14-36); Bilirubin,Total 0.3 mg/dl (0.2-1.3); Blood Urea Nitrogen 15 mg/dl (7-17); Calcium 9.1 mg/dl (8.4-10.2); Carbon Dioxide 25 mmol/L (22.0-30.0); Chloride 103 mmol/L (98-107); Chol/HDL Ratio 2.6 (1-3.5); Cholesterol 159 mg/dl (140-200); Estimated Glomerular Filt Rate 94 ml/min (>60); GFR (African American) 114 ML/MIN (>60); Glucose 99 mg/dl (74-100); HDL Cholesterol 62 mg/dl (40-60); Potassium 4.2 mmoL/L (3.5-5.1); Sodium 137 mmol/L (136-145); Total Protein,Serum 7.6 g/dl (6.3-8.2); Triglycerides 99 mg/dl (30-150); VLDL Cholesterol 20 mg/dL (0-40)
[2022-06-04 20:45] LABS: Direct LDL Cholesterol 83.87 mg/dL (100-129)
[2022-06-04 20:48] LABS: 25-OH Vitamin D, Total 20.9 ng/mL (30-100)
[2022-06-04 21:02] LABS: Thyroid Stimulating Hormone 2.74 uIU/mL (0.465-4.68)
[2022-06-04 21:21] LABS: Vitamin B12 510 pg/mL (239-931)
== END ==
PROVIDERS: PCP Physician Assistant; Visit Provider Physician Assistant
DX: F41.9 Anxiety disorder, unspecified (principal); E55.9 Vitamin D deficiency, unspecified
CPT/HCPCS: 80053; 80061; 82306; 82607; 84443; 85025

== ENCOUNTER 2023-11-11 09:23 | Outpatient (CLI) | payer OTHER, SELFPAY ==
[2023-11-11 10:30] LABS: HCG,Quantitative 8720 mIU/ml (0-5.42)
[2023-11-12 08:51] LABS: Progesterone 21.9 ng/mL (.)
== END 2023-11-11 23:59 | disposition home or self-care (01) ==
LOC: LAB 09:24
PROVIDERS: PCP Physician Assistant; Visit Provider Nurse Practitioner Obstetrics & Gynecology
DX: N92.6 Irregular menstruation, unspecified (principal)
CPT/HCPCS: 36415; 84144; 84702

== ENCOUNTER 2023-12-01 11:33 | Outpatient (CLI) | payer OTHER, SELFPAY | END 2023-12-01 23:59 | disposition home or self-care (01) | LOC: LAB.DROPOF 12-02 15:13 | PROVIDERS: PCP Physician Assistant; Visit Provider Nurse Practitioner Obstetrics & Gynecology | DX: Z34.90 Encounter for supervision of normal pregnancy, unspecified, unspecified trimester (principal) | CPT/HCPCS: 87086 ==

== ENCOUNTER 2023-12-09 13:46 | Outpatient (CLI) | payer OTHER, SELFPAY ==
--- NOTE | 2023-12-09 13:51 | US_ITS ---
PROCEDURE: US OB <= 14 WEEKS FETUS CLINICAL INDICATION: for dates COMPARISON: No exams were available for comparison FINDINGS: Transvaginal sonographic images of the pelvis were obtained. From her last menstrual period she is 10 weeks 0 days. An intrauterine gestational sac is present with a pole with a crown-rump length of 2.35cm This correlates to a gestational age of 9weeks 1day. heart tones are present with an FHR of 165bpm. Yolk sac is noted. The yolk sac measures 6.2mm. The right ovary is seen and appears normal. There appears to be a corpus luteum in the right ovary measuring 0.9 cm. The left ovary is seen and appears normal. There is a 1.2 cm follicle in the left ovary. There is no fluid in the cul-de-sac. IMPRESSION: 1. Viable fetus within the uterine cavity. 2. Fetus measures 9 weeks 1 day and we will revise her dates reflect this. Her new due date will be 07/12/2024. 3. Both ovaries are seen and appear normal. 4. No fluid in the cul-de-sac Dictated by: Robert Cohn MD 12/09/2023 16:51 Robert Cohn MD in OV 12/09/2023 16:51
== END 2023-12-09 23:59 | disposition home or self-care (01) ==
LOC: RAD 13:46
PROVIDERS: PCP Nurse Practitioner Obstetrics & Gynecology; Visit Provider Nurse Practitioner Obstetrics & Gynecology
DX: Z34.90 Encounter for supervision of normal pregnancy, unspecified, unspecified trimester (principal)
CPT/HCPCS: 76801

== ENCOUNTER 2024-02-23 13:56 | Outpatient (CLI) | payer OTHER, SELFPAY ==
--- NOTE | 2024-02-23 14:00 | US_ITS ---
PROCEDURE: US OB /MATERNAL DETAIL CLINICAL INDICATION: 20 week Anatomy Scan-US OB Complete COMPARISON: US US OB <= 14 WEEKS FETUS from 12/09/2023 FINDINGS: Transabdominal sonographic images of the pelvis were obtained. From her established due date she is 20 weeks 0 days. Single viable intrauterine gestation. Cephalic position. Placenta: Anteriorplacenta grade 1. There is an average amount of fluid. The cervix appears satisfactory. Closed and measuring 3.16 cm in length. Complete survey performed and was unremarkable on the submitted images as in PACS. No discrete anomalies identified on survey imaging by technologist. Active fetus. Three-vessel cord with satisfactory umbilical cord insertion. 4- chamber heart noted. Situs, aortic arch, LVOT, RVOT, three-vessel view appear normal. Survey of brain & ventricles Unremarkable. Cerebellum, thalamus, choroid plexus, cisterna magna appear normal. Face and neck survey unremarkable. Profile, nasion, lips and nose appeared normal. Diaphragm and chest views unremarkable. Abdomen: Both kidneys noted and unremarkable. Stomach and bladder noted and satisfactory. Spine: Survey of the spine satisfactory with no anomalies identified nor imaged. Cervical, thoracic, lower spine appear normal. Both arms and legs noted. Amniotic Fluid: Adequate. MVP 3.61 cm. Measurements: Average ultrasound age 20weeks 4days. Estimated due date by ultrasound age 0307/08/2024. Estimated weight 342g BPD = 21weeks 0 days HC = 20weeks 4days AC = 20weeks 3days FL = 20weeks 1day Growth Percentile= 61 Heart Rate = 135bpm Cerebellum = 20weeks 3days Humerus = 20weeks 2days HC/AC is 1.2 FL/BPD is 0.66 FL/AC is 0.22 IMPRESSION: 1. Viable fetus in the cephalic presentation with an anterior placenta grade 1. 2. The fluid is within normal limits with an MVP 3.61 cm. 3. Anatomical scan appears normal. 4. biometry is consistent with the dates. Dictated by: Robert Cohn MD 02/23/2024 15:33 Robert Cohn MD in OV 02/23/2024 15:33
== END 2024-02-23 23:59 | disposition home or self-care (01) ==
PROVIDERS: PCP Family Medicine; Visit Provider Nurse Practitioner Obstetrics & Gynecology
DX: Z36.3 Encounter for antenatal screening for malformations (principal); Z98.891 History of uterine scar from previous surgery; Z3A.20 20 weeks gestation of pregnancy
CPT/HCPCS: 76811

== ENCOUNTER 2024-04-23 07:10 | Outpatient (CLI) | payer OTHER, SELFPAY ==
[2024-04-23 07:38] LABS: Basophils % 0.2 % (0.1-2.0); Eosinophils # 0.1 K/mm3 (0.0-0.4); Eosinophils % 0.6 % (0.1-12.0); Hematocrit 32.6 % (37.0-47.0); Hemoglobin 11.3 g/dL (12.2-16.2); Lymphocytes # 1.7 K/mm3 (0.7-4.5); Lymphocytes % 20.6 % (10-50); Mean Corpuscular HGB Conc 34.7 g/dL (31.8-35.4); Mean Corpuscular Hemoglobin 30.7 pg (27.0-31.2); Mean Corpuscular Volume 88.6 fl (81-99); Mean Platelet Volume 10.3 fl (7.4-10.4); Monocytes # 0.5 K/mm3 (0.1-1.0); Monocytes % 5.5 % (1.7-9.3); Neutrophils # 5.9 K/mm3 (1.8-7.8); Neutrophils % 72.9 % (37.0-80.0); Platelet Count 231 K/mm3 (142-424); Red Blood Count 3.68 M/mm3 (4.20-5.40); Red Cell Distribution Width 12.1 % (11.5-17.5); White Blood Count 8.1 K/mm3 (4.8-10.8)
[2024-04-23 08:07] LABS: Glucose,Fasting 86 mg/dl (74-100)
[2024-04-23 08:56] LABS: Glucose 1 Hour 120 mg/dL (74-100)
[2024-04-23 09:28] LABS: HIV Combo NEGATIVE (Negative)
[2024-04-24 06:10] LABS: HCV Ab Non Reactive (Non Reactive); Hepatitis B Surface Antigen Negative (Negative); Rubella Antibodies, IgG 1.13 index (Immune >0.99)
== END 2024-04-23 23:59 | disposition home or self-care (01) ==
LOC: LAB 07:11
PROVIDERS: Nurse Practitioner Obstetrics & Gynecology; Visit Provider Obstetrics & Gynecology
DX: Z34.90 Encounter for supervision of normal pregnancy, unspecified, unspecified trimester (principal)
CPT/HCPCS: 36415; 82951; 85025; 86762; 86803; 86850; 87340; 87389

== ENCOUNTER 2024-06-16 22:18 | Outpatient (CLI) | payer OTHER, SELFPAY | END 2024-06-16 23:59 | disposition home or self-care (01) | LOC: LAB.DROPOF 22:19 | PROVIDERS: PCP Obstetrics & Gynecology; Visit Provider Obstetrics & Gynecology | DX: Z34.83 Encounter for supervision of other normal pregnancy, third trimester (principal) | CPT/HCPCS: 86403 ==

== ENCOUNTER 2024-07-06 04:50 | Inpatient (IN) | payer OTHER, SELFPAY ==
[2024-07-06 04:52] VITALS: BMI 31.9
[2024-07-06] MEDS: LACTATED RINGERS 1000ML 1,000 ML 250 ML IV (05:15)
[2024-07-06 05:21] LABS: Microscopic, Urine URINE MICROSCOPIC (MICROSCOPIC)
[2024-07-06 05:28] VITALS: BMI 31.9
[2024-07-06 05:28] LABS: Basophils % 0.4 % (0.1-2.0); Eosinophils # 0.1 K/mm3 (0.0-0.4); Eosinophils % 0.7 % (0.1-12.0); Hemoglobin 11.4 g/dL (12.2-16.2); Lymphocytes # 3.1 K/mm3 (0.7-4.5); Lymphocytes % 29.3 % (10-50); Mean Corpuscular HGB Conc 34.5 g/dL (31.8-35.4); Mean Corpuscular Hemoglobin 30.2 pg (27.0-31.2); Mean Corpuscular Volume 87.5 fl (81-99); Mean Platelet Volume 10.7 fl (7.4-10.4); Monocytes # 0.5 K/mm3 (0.1-1.0); Monocytes % 5.1 % (1.7-9.3); Neutrophils # 6.7 K/mm3 (1.8-7.8); Neutrophils % 64.2 % (37.0-80.0); Platelet Count 283 K/mm3 (142-424); Red Blood Count 3.77 M/mm3 (4.20-5.40); White Blood Count 10.4 K/mm3 (4.8-10.8)
[2024-07-06 05:36] LABS: Alanine Aminotransferase 20 U/L (12-78); Albumin/Globulin Ratio 1.3 (1.1-1.8); Alkaline Phosphatase 154 U/L (38-126); Anion Gap 14.1 mEq/L (5-15); Aspartate Amino Transferase 30 U/L (14-36); Bilirubin,Total 0.3 mg/dl (0.2-1.3); Blood Urea Nitrogen 11 mg/dl (7-17); Calcium 8.9 mg/dl (8.4-10.2); Carbon Dioxide 19 mmol/L (22.0-30.0); Chloride 106 mmol/L (98-107); Creatinine Clearance Estimated 208 mL/min (50-200); Estimated Glomerular Filt Rate 137 ml/min (>60); GFR (African American) 166 ML/MIN (>60); Globulin 3.2 g/dL (1.3-3.2); Glucose 95 mg/dl (74-100); Potassium 4.1 mmoL/L (3.5-5.1); Sodium 135 mmol/L (136-145); Total Protein,Serum 7.2 g/dl (6.3-8.2)
[2024-07-06 05:41] LABS: Color,Urine Yellow (Yellow)
[2024-07-06 05:42] LABS: Appearance,Urine Clear (Clear); Bilirubin,Urine Negative (Negative); Blood, Urine Negative (Negative); Glucose,Urine (UA) Negative (Negative); Ketones,Urine Trace (Negative); Leukocyte Esterase,Urine Negative (Negative); Nitrate,Urine Negative (Negative); PH,Urine 6.5 (5.0-8.5); Protein,Urine Negative (Negative); Urobilinogen,Urine 0.2 EU/dl (0.2)
[2024-07-06 05:45] LABS: Bacteria,Urine 1+ /lpf; Mucus,Urine 1+ /lpf
--- NOTE | 2024-07-06 07:25 | EXP.OB.APHP ---
OB - H&P: HPI Antepartum History of Present Illness Chief complaint: Scheduled repeat History of present illness: Mrs Holley Kitchen is a 38 yo at 39w1d who presents to [facility] for scheduled repeat and bilateral salpingectomy. She has had good care. History of x 1. She is complete with childbearing and desires permanent sterilization. History of Present Criteria for establishing EDC:: LMP confirmed by 1st trimester US care: good care Ultrasounds: normal mid trimester US Obstetrical complications: previous Labs Blood type: A (+) positive Rubella: immune RPR/VDRL: nonreactive GBS status: positive HBsAG: negative PFSMID [facility] Disclaimer: The information contained in this section may have been updated after the patient was seen, as this information can be updated by other users. Medical History (Updated 07/06/24 @ 07:32 by Gege Chandra DO) 39 weeks gestation of Positive GBS test Request for sterilization Advanced maternal age affecting , antepartum Generalized anxiety disorder Encounter for weight management Overweight (BMI 25.0-29.9) Surgical History Hx of section Family History Father Diabetes Social History Smoking Status: Never smoker alcohol intake: current alcohol intake frequency: holidays/special occasions only substance use type: denies use current occupational status: employed Travel in the last 8 weeks: None household members: family housing: house number of children: 1 Have you lived/traveled outside [place] in past 30 days?: No Contact w/someone who lives/traveled outside US past 30 days?: No Exposure to someone with infectious disease in past 14 days?: No Do you have a fever (greater than 100.4 F or 38 C)?: No Have you tested positive for COVID-19: No Exposed to someone with COVID-19 in past 14 days?: No Do you have a sore throat?: No Do you have a cough?: No Do you have any weakness?: No Do you have any diarrhea?: No Are you experiencing any unusual bleeding?: No Do you have any muscle aches/pain?: No Do you have any abdominal pain?: No Are you experiencing loss of taste or smell?: No Other Medical History Have you received the Flu Vaccine for this season: Yes Have you received the Pneumonia Vaccine: No Review of Systems Review of Systems Review of systems:: pertinent systems reviewed and negative unless documented below Meds Home Medications and Allergies Home Medications ?Medication ?Instructions ?Recorded ?Confirmed ?Type ergocalciferol (vitamin D2) 1,250 1,250 mcg PO WEEKLY #14 caps 06/06/22 07/06/24 Rx mcg (50,000 unit) capsule cholecalciferol (vitamin D3) 50 50 mcg PO DAILY #90 caps 03/25/23 07/06/24 Rx mcg (2,000 unit) capsule vits no.126-ferrous fum 1 tab PO DAILY 03/24/24 07/06/24 History 28 mg iron-folic acid 800 mcg tablet (Classic ) fluoxetine 20 mg capsule (Prozac) 20 mg PO DAILY #30 caps 03/25/24 07/06/24 Rx famotidine 20 mg tablet (Pepcid) 20 mg PO BID 05/20/24 07/06/24 History New Prescriptions to Start Prescriptions: Allergies Allergy/AdvReac Type Severity Reaction Status Date / Time Sulfa (Sulfonamide Allergy Intermediate Verified 06/30/24 13:51 Antibiotics) (SULFA (SULFONAMIDE ANTIBIOTICS)) Latex, Natural Rubber AdvReac Mild Verified 06/30/24 13:51 OB - H&P: Exam Constitutional no acute distress and cooperative Routine HEENT Exam Head: Present normocephalic and atraumatic Eye: Absent conjunctivae pink ENT: Present mucous membranes moist Routine Neck Exam Present full ROM Routine Respiratory Exam Present CTA bilaterally and normal respiratory effort Routine Cardiovascular Exam Present RRR Routine Abdominal Exam Present soft (Gravid); Absent tenderness Routine Rectal Exam Patient deferred: visual exam Routine Exam External: Present normal urethra appearance; Absent erythema, swelling, tenderness, lesions, lacerations or vulvar erythema Routine Extremities Exam Present edema and full ROM; Absent calf tenderness Routine Neurological Exam Present alert, moving all extremities and normal speech Routine Psychiatric Exam Present normal affect and cooperative OB - Results Labs Labs: Short CBC 07/06/24 Range/Units 05:10 WBC 10.4 (4.8-10.8) K/mm3 Hgb 11.4 L (12.2-16.2) g/dL Hct 33.0 L (37.0-47.0) % Plt Count 283 (142-424) K/mm3 BMP 07/06/24 05:10 Sodium 135 L Potassium 4.1 Chloride 106 Carbon Dioxide 19 L BUN 11 Creatinine 0.50 L Glucose 95 Calcium 8.9 Liver Function 07/06/24 Range/Units 05:10 Total Bilirubin 0.3 (0.2-1.3) mg/dl AST 30 (14-36) U/L ALT 20 (12-78) U/L Alkaline Phosphatase 154 H (38-126) U/L Albumin 4.0 (3.5-5.0) g/dl Urine 07/06/24 Range/Units 05:15 Urine Color Yellow (Yellow) Urine Appearance Clear (Clear) Urine pH 6.5 (5.0-8.5) Ur Specific [place] 1.020 (1.005-1.030) Urine Protein Negative (Negative) Urine Glucose (UA) Negative (Negative) OB - A/P Antepartum (1) 39 weeks gestation of : Status: Acute (2) Advanced maternal age affecting , antepartum: Status: Acute (3) Hx of section: Problem details: x 1 Status: Acute (4) Request for sterilization: Status: Acute Additional Plan Additional Information:: Admit to [facility] for sheduled repeat with bilateral salpingectomy Reviewed risks, benefits, alternatives, expectations and possible complications. All questions addressed and answered Proceed with RLTCS and bilateral salpingectomy
[2024-07-06] MEDS: CITRIC ACID/SODIUM CITRATE ORAL SOLN 30ML UDC 30 ML PO (07:48)
--- NOTE | 2024-07-06 08:28 | P.CONPHA_ITS ---
Pharmacy Intervention Comments: MEDICATION RECONCILIATION COMPLETED ON PATIENT USING EXTERNAL FILL HISTORY FROM PHARMACY AND LIST FROM NERVE SPECIALIST OFFICE. -TANNA DE LUNAD
--- NOTE | 2024-07-06 08:28 | HMH.PHAINT1 ---
Pharmacy Intervention Comments: MEDICATION RECONCILIATION COMPLETED ON PATIENT USING EXTERNAL FILL HISTORY FROM PHARMACY AND LIST FROM BOXING INSPECTOR OFFICE. -TANNA DE LUNAD
[2024-07-06 08:45] VITALS: BP 112/69; PULSE 88; RESP 18; TEMP 36.2; O2SAT 98
--- NOTE | 2024-07-06 08:51 | P.OP_ITS ---
Date of procedure: 07/06/24 Pre-op Diagnosis:: 1. IUP at 39w1d 2. AMA 3. Hx of x 1 4. Desires permanent sterilization Post-op Diagnosis:: 1. IUP at 39w1d 2. AMA 3. Hx of x 1 4. Desires permanent sterilization Procedure performed:: 1. Repeat Low Transverse section 2. Bilateral salpingectomy Surgeon:: Gege Chandra DO Profile Saw Operator(s):: Holley Martinez DO [employer] MANAGER:: George Hall Anesthesia: spinal Estimated blood loss (mL): 400 Clinical Note:: Mrs Holley Kitchen is a 38 yo at 39w1d who presents to [facility] L&D for scheduled repeat and bilateral salpingectomy. She has had good prennovant health / [facility] care. History of x 1. She is complete with childbearing and desires permanent sterilization. Operative findings:: 1. Live male baby, Trip, weighing 7 lb 7 oz. AGPARs 8 (1 min), 8 (5 min) 2. Grossly normal appearing uterus, bilateral fallopian tubes and ovaries Operative note:: The risks, benefits and alternatives of the procedure were reviewed with the patient. Informed consent was obtained. Patient was taken to the operating room where spinal anesthesia was placed. The patient received 2 grams of Ancef preoperatively. Patient was placed in dorsal supine position with a leftward tilt. SCDs in place. Dai catheter had been placed and was draining clear urine prior to the start of the procedure. heart tones were obtained. Patient was then prepped and draped in normal sterile fashion. Allis clamp test was performed to ensure adequate anesthesia. A Pfannenstiel skin incision was made 2 cm above pubic symphysis. This was carried through to underlying layer of fascia. Fascia was incised in midline, extended laterally with Martin scissors. Superior aspect of fascial incision was grasped with two María clamps, elevated up, and rectus muscle dissected off bluntly and sharply with Martin scissors. Inferior aspect of fascial incision was grasped with two María clamps, elevated up, and rectus muscle dissected off bluntly and sharply with Martin scissors.The retcus muscle was then in the midline and the peritoneum was entered bluntly with a digit. Peritoneal incision was then extended superiorly and inferiorly with good visualization of the bladder. Papito retractor was inserted. The lower uterine segment was incised in a transverse fashion. Meconium stained amniotic fluid was noted. Head was delivered without difficulty. Remainder of body was delivered without difficulty. Mouth and nares were bulb suctioned. Spontaneous cry was noted. Delayed cord clamping was performed for 60 seconds. The umbilical cord was clamped and cut. The infant was handed to awaiting pediatric staff in stable condition. Dr. Holguin was present. Apgars were 8 (1 min), 8 (5 min). Cord blood was obtained. Gentle traction on the umbilical cord and uterine fundal massage delivered the placenta. Placenta was intact. Uterus was cleared of all clots and debris with a moist laparotomy sponge. Corners of the uterine incision were grasped with Allis clamps. The uterine incision was reapproximated with # 1 Vicryl suture in a running, locked stitch. Second layer of the same stitch was used to imbricate the incision. Hemostasis was noted. Posterior cul-de-sac was cleaned with moist laparotomy sponge. Gutters cleared of all clots and debris with a moist laparotomy sponge. Attention was then turned to the left fallopian tube, which was grasped with a [place] clamp. Enseal device was used to clamp, ligate and transect the right mesosalpinx and fallopian tube at uterine cornua,. Same procedure was carried out on the contralateral side Reinspection of the lower uterine segment demonstrated small amount of oozing. Surgicel powder was applied over uterine incision. Hemostasis was noted. At this point all instruments and sponges were removed from the pelvis.? The peritoneum was grasped with Janny clamps x 3. The peritoneum was reapproximated with 0 Vicryl suture in a running stitch. The corners of the fascia were grasped with María clamps, and the fascia was reapproximated with two # 1 Vicryl suture overlapped to the right of midline. Subcutaneous tissue was irrigated with clear return of fluids. The subcutaneous tissue was reapproximated with 3-0 Vicryl. The skin was reapproximated with Insorb elizabeth. Steri strips and Telfa was placed over closed Pfannenstiel skin incision. At the end of the procedure, the uterus was firm with minimal vaginal bleeding. Patient tolerated the procedure well. Instrument, sponges and needle counts were correct x 2. Mom and baby were transported to recovery room in stable condition. Condition: stable Disposition: floor Specimens:: 1. Bilateral fallopian tubes Complications:: None
--- NOTE | 2024-07-06 08:51 | EXP.ANES.CKL ---
[facility] Disclaimer: The information contained in this section may have been updated after the patient was seen, as this information can be updated by other users. Medical History (Updated 07/06/24 @ 07:32 by Gege Chandra DO) 39 weeks gestation of Positive GBS test Request for sterilization Advanced maternal age affecting , antepartum Generalized anxiety disorder Encounter for weight management Overweight (BMI 25.0-29.9) Surgical History Hx of section Family History Father Diabetes Social History Smoking Status: Never smoker alcohol intake: current alcohol intake frequency: holidays/special occasions only substance use type: denies use current occupational status: employed Travel in the last 8 weeks: None household members: family housing: house number of children: 1 Have you lived/traveled outside [place] in past 30 days?: No Contact w/someone who lives/traveled outside US past 30 days?: No Exposure to someone with infectious disease in past 14 days?: No Do you have a fever (greater than 100.4 F or 38 C)?: No Have you tested positive for COVID-19: No Exposed to someone with COVID-19 in past 14 days?: No Do you have a sore throat?: No Do you have a cough?: No Do you have any weakness?: No Do you have any diarrhea?: No Are you experiencing any unusual bleeding?: No Do you have any muscle aches/pain?: No Do you have any abdominal pain?: No Are you experiencing loss of taste or smell?: No [facility] Anesthesia Checklist Patient Identification Patient Identification: Arm Band Structural Data Admitted From: Inpatient Planned Operative Procedure/s: Repeat C/S with BTL Consent for Planned Operative Procedure(s) Verified: Yes Verified Documents: Surgical Consent and History and Physical NPO Status Verified Time NPO: 00:00 Additional verifications Anesthesia Reactions: No Hx Blood Transfusions: No Blood Transfusion Reaction: No Airway Assessment Mallampati Score:: Class II C-Spine Mobility Assessed: Yes TMJ Mobility Assessed: Yes Dentition: Good Dentition Neurological Assessment Level of Consciousness: Awake, Alert and Appropriate Anesthesia Plan Anesthesia Risk discussed: Yes Anesthesia Plan: Verified ASA Class: II Anesthesia Type: Spinal (with Bilateral TAP Block)
[2024-07-06 08:55] VITALS: BP 108/59; PULSE 75; RESP 18; TEMP 36.2; O2SAT 99
[2024-07-06 09:05] VITALS: BP 105/66; PULSE 67; RESP 18; TEMP 36.2; O2SAT 99
[2024-07-06 09:15] VITALS: BP 110/69; PULSE 69; RESP 18; TEMP 36.2; O2SAT 99
[2024-07-06] MEDS: OXYTOCIN/RINGERS LACTATE 30 UNITS/500 ML BAG 40 UNITS IV (09:29)
[2024-07-06] MEDS: LACTATED RINGERS 1000ML 1,000 ML 125 ML IV (09:29)
--- NOTE | 2024-07-06 11:08 | EXP.ANES.II ---
[facility] Anesthesia Record Part II Anesthesia Record Part II Discharge Time: 09:15 Destination: Obstetric PACU nurse assessment reviewed?: Yes Patient Condition:: Good Anesthesia Complications:: None Swallowing reflex intact?: Yes Airway Patency: Patent Cyanosis?: No Blood Pressure: 110/69 SaO2: 99 Respiratory Rate: 18 Pulse Rate: 69 Temperature: 97.2 F Mental Status: Alert & Oriented Pain level:: 0 Nausea and/or vomitting:: None Intake, IV Amount: 0 Hydration: Adequate
--- NOTE | 2024-07-06 11:09 | P.PNANES_ITS ---
[facility] Anesthesia Record Part I Anesthesia Record I Intake, IV Amount: 2,000 Hydration: Adequate Estimated blood loss (mL): 400 Urine output (mL): 200 Blood Products used (#): none Blood Pressure: 112/59 SaO2: 97 Pulse Rate: 83 Airway Patency: Patent Respiratory Rate: 16 Temperature: 97.2 F Patient is:: Drowsy and Stable Stable to PACU at:: 08:45
[2024-07-06 11:10] VITALS: BP 110/69; BP 112/59; PULSE 69; PULSE 83; RESP 16; RESP 18; TEMP 36.2; O2SAT 97; O2SAT 99
[2024-07-06] MEDS: KETOROLAC 30MG/ML VIAL 30 MG IV ×2 (14:03→21:08)
[2024-07-06] MEDS: ACETAMINOPHEN 500MG TAB 1000 MG PO ×2 (14:09→21:08)
[2024-07-06 14:40] VITALS: BP 119/63; PULSE 70; RESP 16
[2024-07-06] MEDS: CEFAZOLIN SODIUM 2 GM in 0.9 % SODIUM CHLORIDE 100 ML IV (15:09)
[2024-07-06] MEDS: OXYCODONE 5MG IMMEDIATE RELEASE TABLET 5 MG PO (18:44)
[2024-07-06] MEDS: PRENATAL MULTIVITAMIN W/IRON 1 EACH PO (18:45)
[2024-07-07] MEDS: SENNA 8.6MG TABLET 8.6 MG PO ×2 (00:41→13:43)
[2024-07-07] MEDS: CEFAZOLIN SODIUM 2 GM in 0.9 % SODIUM CHLORIDE 100 ML IV (00:42)
[2024-07-07] MEDS: OXYCODONE 5MG IMMEDIATE RELEASE TABLET 5 MG PO (00:42)
[2024-07-07] MEDS: KETOROLAC 30MG/ML VIAL 30 MG IV ×2 (03:24→08:05)
[2024-07-07] MEDS: ACETAMINOPHEN 500MG TAB 1000 MG PO ×2 (03:24→08:05)
[2024-07-07 06:49] LABS: Monocytes # 0.7 K/mm3 (0.1-1.0)
[2024-07-07 07:10] LABS: Basophils % 0.3 % (0.1-2.0); Eosinophils # 0.1 K/mm3 (0.0-0.4); Eosinophils % 0.5 % (0.1-12.0); Hemoglobin 10.1 g/dL (12.2-16.2); Lymphocytes # 1.8 K/mm3 (0.7-4.5); Lymphocytes % 16.5 % (10-50); Mean Corpuscular HGB Conc 34.8 g/dL (31.8-35.4); Mean Platelet Volume 10.5 fl (7.4-10.4); Monocytes % 6.2 % (1.7-9.3); Neutrophils # 8.3 K/mm3 (1.8-7.8); Neutrophils % 76.2 % (37.0-80.0); Platelet Count 240 K/mm3 (142-424); Red Blood Count 3.26 M/mm3 (4.20-5.40); Red Cell Distribution Width 13.1 % (11.5-17.5); White Blood Count 10.9 K/mm3 (4.8-10.8)
[2024-07-07 08:03] VITALS: BP 111/66; PULSE 92; RESP 18; TEMP 36.7; O2SAT 99
--- NOTE | 2024-07-07 10:05 | P.PN_ITS ---
Subjective *Date: 07/07/24 *Time: 10:05 Medical Exam Vital signs and Labs for Last 24 Hours: Vital Signs Temp Pulse Pulse Resp BP BP Pulse Ox 07/07/24 08:03 98.1 F 92 H 18 111/66 99 07/06/24 14:40 70 16 119/63 07/06/24 11:10 18 07/06/24 11:10 97.2 F L 83 16 112/59 L O2 Del Method 07/07/24 08:03 Room Air 07/06/24 14:40 07/06/24 11:10 07/06/24 11:10 Laboratory Results - last 24 hr 07/07/24 06:20: WBC 10.9 H, RBC 3.26 L, Hgb 10.1 L, Hct 29.0 L, MCV 89.0, MCH 31.0, MCHC 34.8, RDW 13.1, Plt Count 240, MPV 10.5 H, Neut % (Auto) 76.2, Lymph % (Auto) 16.5, [place] % (Auto) 6.2, Eos % (Auto) 0.5, Baso % (Auto) 0.3, Neut # (Auto) 8.3 H, Lymph # (Auto) 1.8, [place] # (Auto) 0.7, Eos # (Auto) 0.1, Baso # (Auto) 0.0 I & O for Labs for Last 24 Hours: Intake & Output 07/04/24 07/05/24 07/06/24 07/07/24 23:59 23:59 23:59 23:59 Intake Total 1999 / 1999 Output Total 1200 / 1200 Balance 800 / 800 Weight 192 lb
--- NOTE | 2024-07-07 12:22 | EXP.DC.SUM ---
General Admission date:: 07/06/24 Discharge date: 07/07/24 HPI HPI HPI: POD # 1 s/p RLTCS with BS Feeling well. Pain controlled. Breast feeding. Lochia is appropriate. Voiding without difficulty and passing flatus. Tolerating regular diet. Denies fever/chills, chest pain and shortness of breath. No headaches, vision changes, lightheadedness/dizziness. Admits to bilateral lower extremity swelling. No calf pain. Ambulating well ad meghan. Hospital Course Hospital Course Hospital Course: Mrs Holley Kitchen is a 38 yo at 39w1d who presents to [facility] L&D for scheduled repeat and bilateral salpingectomy. She has had good care. History of x 1. She is complete with childbearing and desires permanent sterilization. She underwent repeat with bilateral salpingectomy on 07/06/24. She had a live male baby, Trip, weighing 7 lb 7 oz. AGPARs 8 (1 min), 8 (5 min). EBL 400 mL. She did well /postoperatively. Pain controlled. Breast feeding. Light lochia. Voiding without difficulty and passing flatus. Tolerating regular diet. Denies fever/chills, chest pain and shortness of breath. No headaches, dizziness/lightheadedness or vision changes. Vital signs stable, afebrile. Heart regular rate and rhythm. Lungs clear to auscultation. Abdomen soft, nontender. She had +1 bilateral lower extremity edema. No calf pain. Ambulating well ad meghan. Normal hospital course. She was discharged to home on POD # 1 with instructions to follow-up in the office in 2 weeks or sooner if needed. Exam Data for Last 24 hours Vital signs and Labs for Last 24 Hours: Temp Pulse Resp BP Pulse Ox O2 Del Method 98.1 F 92 H 18 111/66 99 Room Air 07/07/24 08:03 07/07/24 08:03 07/07/24 08:03 07/07/24 08:03 07/07/24 08:03 07/07/24 08:03 Laboratory Results - last 24 hr 07/07/24 06:20: WBC 10.9 H, RBC 3.26 L, Hgb 10.1 L, Hct 29.0 L, MCV 89.0, MCH 31.0, MCHC 34.8, RDW 13.1, Plt Count 240, MPV 10.5 H, Neut % (Auto) 76.2, Lymph % (Auto) 16.5, [place] % (Auto) 6.2, Eos % (Auto) 0.5, Baso % (Auto) 0.3, Neut # (Auto) 8.3 H, Lymph # (Auto) 1.8, [place] # (Auto) 0.7, Eos # (Auto) 0.1, Baso # (Auto) 0.0 I & O for Last 24 hours: Intake & Output 07/04/24 07/05/24 07/06/24 07/07/24 23:59 23:59 23:59 23:59 Intake Total 2000 / 2000 Output Total 1200 / 1200 Balance 800 / 800 Weight 192 lb Constitutional Constitutional: no acute distress and cooperative *Routine HEENT Exam Head: Present normocephalic and atraumatic Eye: Absent conjunctivae pink ENT: Present mucous membranes moist *Routine Neck Exam Neck: Present full ROM *Routine Respiratory Exam Respiratory: Present CTA bilaterally and normal respiratory effort *Routine Cardiovascular Exam Cardiovascular: Present RRR *Routine Abdominal Exam Abdominal: Present soft and normoactive bowel sounds; Absent tenderness Comments: Pfannenstiel incision clean/dry/intact, steri strips in place *Routine Rectal Exam Patient deferred: visual exam *Routine Exam Patient deferred: external exam *Routine Extremities Exam Extremities: Present edema (+1 bilateral lower extremity edema) and full ROM; Absent calf tenderness *Routine Neurological Exam Neurological: Present alert, moving all extremities and normal speech Routine Psychiatric Exam Psychiatric: Present normal affect and cooperative Results Data Completed and Pending Labs on day of discharge: Labs from last 24 hours 07/07/24 06:20 WBC 10.9 H RBC 3.26 L Hgb 10.1 L Hct 29.0 L MCV 89.0 MCH 31.0 MCHC 34.8 RDW 13.1 Plt Count 240 MPV 10.5 H Neut % (Auto) 76.2 Lymph % (Auto) 16.5 [place] % (Auto) 6.2 Eos % (Auto) 0.5 Baso % (Auto) 0.3 Neut # (Auto) 8.3 H Lymph # (Auto) 1.8 [place] # (Auto) 0.7 Eos # (Auto) 0.1 Baso # (Auto) 0.0 DS: Diagnosis Discharge Diagnosis (1) S/P : Status: Acute Code(s): Z98.891 - History of uterine scar from previous surgery (2) 39 weeks gestation of : Status: Acute Code(s): Z3A.39 - 39 weeks gestation of (3) Advanced maternal age affecting , antepartum: Status: Acute (4) Hx of section: Status: Acute Code(s): Z98.891 - History of uterine scar from previous surgery Problem details: x 1 (5) Request for sterilization: Status: Acute Code(s): Z30.2 - Encounter for sterilization (6) Acute blood loss anemia: Status: Acute Code(s): D62 - Acute posthemorrhagic anemia Meds Home Medications and Allergies Home Medications ?Medication ?Instructions ?Recorded ?Confirmed ?Type vits no.126-ferrous fum 1 tab PO DAILY 03/24/24 07/06/24 History 28 mg iron-folic acid 800 mcg tablet (Classic ) fluoxetine 20 mg capsule (Prozac) 20 mg PO DAILY #30 caps 03/25/24 07/06/24 Rx famotidine 20 mg tablet (Pepcid) 20 mg PO BID 05/20/24 07/06/24 History ibuprofen 800 mg tablet 800 mg PO Q8H PRN pain #20 tabs 07/07/24 Rx oxycodone 5 mg tablet 5 mg PO Q4HP PRN Moderate Pain 07/07/24 Rx (4-6) #20 tabs New Prescriptions to Start Prescriptions: ibuprofen Gege Chandra oxycodone Gege Chandra Allergies Allergy/AdvReac Type Severity Reaction Status Date / Time Sulfa (Sulfonamide Allergy Intermediate Verified 06/30/24 13:51 Antibiotics) (SULFA (SULFONAMIDE ANTIBIOTICS)) Latex, Natural Rubber AdvReac Mild Verified 06/30/24 13:51 Discharge Plan Disposition Patient Disposition: Home, Self-Care Condition: Good Discharge Order Discharge Orders: Discharge Order (Routine); Ordered 07/07/24 Ordered By: eGge Chandra Follow up Plan Follow up with: Gege Chandra DO [Primary Care Provider] - 07/19/24 2:30 pm Prescriptions/Medication Reconciliation: New oxycodone 5 mg Tablet 5 mg PO Q4HP PRN (Reason: Moderate Pain (4-6)) Qty: 20 0RF ibuprofen 800 mg tablet 800 mg PO Q8H PRN (Reason: pain) Qty: 20 0RF Continued fluoxetine [Prozac] 20 mg capsule 20 mg PO DAILY Qty: 30 1RF Classic 28 mg iron- 800 mcg tablet 1 tab PO DAILY famotidine [Pepcid] 20 mg tablet 20 mg PO BID Problem Reconciliation Problems Reviewed?: Yes Patient Discharge Instructions ACTIVITY: Limited activity DIET: continue same diet and regular diet Additional Instructions: Congratulations!! Discharge: 1. Take 800 mg Ibuprofen every 8 hours as needed for pain. You can also take 500-1000 mg of Tylenol in between doses, every 6-8 hours. If pain persists you can take Oxycodone 5 mg, 1 tablet every 4-6 hours or more as needed. 2. Nothing in the vagina for 6 weeks - no intercourse, douching or tampons. No tub baths/hot tubs or swimming pools 3. No lifting anything heavier than baby in pumpkin seat for 6 weeks 4. Reasons to return to L&D or call On-Call doctor - fever (greater than 100.4) - heavy vaginal bleeding (soaking through 1 pad in less than 2 hours) - vaginal discharge (malodorous and/or purulent) - severe headaches not resolved by medication or rest and leg tenderness/edema 4. depression/blues - Normal to feel anxious/overwhelmed for first 2 weeks - Talk to your doctor if: severe anxiety, trouble bonding with baby, withdrawing from other family members, thoughts of harming yourself or others Gege Chandra DO [facility] [phone] Patient Instructions: Depression, Hemorrhage, DI for , DI for Pre-eclampsia, [facility] Post Discharge Instructions Print Language: Swiss Providers Primary Care Provider: Gege Chandra Admit Provider: Gege Chandra Attending Provider: Gege Chandra
[2024-07-08 00:31] LABS: RPR W/RFX Titers Nonreactive (Nonreactive)
== END 2024-07-07 15:48 | disposition home or self-care (01) | DRG 785 ==
PROVIDERS: Admitting Provider Obstetrics & Gynecology; PCP Obstetrics & Gynecology; Visit Provider Obstetrics & Gynecology
PROC: 10D00Z1 Extraction of Products of Conception, Low, Open Approach (ICD-10-PCS; CPT 59514; principal; 2024-07-06 07:30)
DX: O34.211 Maternal care for low transverse scar from previous cesarean delivery (principal); N85.8 Other specified noninflammatory disorders of uterus; Z3A.39 39 weeks gestation of pregnancy; Z37.0 Single live birth; Z30.2 Encounter for sterilization; Z88.2 Allergy status to sulfonamides; Z88.8 Allergy status to other drugs, medicaments and biological substances; Z79.899 Other long term (current) drug therapy
CPT/HCPCS: 36415; 59025; 80053; 81001; 85025; 86592; 86850; 94761; G0283; J0666; J1885; J2405; J3010; J7120